=== PATIENT | male | born 1990 | race Caucasian/White ===

== ENCOUNTER 2024-02-27 16:21 | Inpatient (IN) | payer MEDICAID, OTHER, SELFPAY ==
[2024-02-27 16:34] VITALS: BP 150/100; BP 152/98; PULSE 102; PULSE 95; RESP 18; TEMP 36.7; O2SAT 100; BMI 27.3
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
[2024-02-27] MEDS: Gabapentin 300 MG CAPSULE PO (17:09)
[2024-02-27] MEDS: LORazepam 1 MG TABLET 2 MG PO ×2 (17:09→19:00)
[2024-02-27] MEDS: Ondansetron ODT 4 MG TAB.RAPDIS TRANSLINGU (17:09)
[2024-02-27 17:19] LABS: MANUAL DIFF FLAG NO
[2024-02-27 17:26] LABS: Basophils Percent Auto 0.3 % (0-2); Eosinophils Percent Auto 0.1 % (0-4); Hematocrit 38.9 % (42.0-52.0); Hemoglobin 13.4 g/dl (14.0-18.0); Imm Gran Abs Auto 0.09 X10*3/uL (0.00-0.03); Imm Gran Pct Auto 0.7 % (0.0-0.4); Lymphocytes Absolute Auto 2.2 X10*3/uL (1.2-4.9); Lymphocytes Percent Auto 17.7 % (20-40); Mean Corpuscular HGB Conc 34.4 g/dl (31.0-36.0); Mean Corpuscular Hemoglobin 28.6 pg (27.0-33.0); Mean Corpuscular Volume 82.9 fL (80.0-98.0); Mean Platelet Volume 9.9 fL (9.4-12.4); Monocytes Absolute Auto 1.2 X10*3/uL (0.1-1.2); Monocytes Percent Auto 9.9 % (2-11); Neutrophils Absolute Auto 8.6 x10*3/uL (2.0-8.3); Neutrophils Percent Auto 71.3 % (45-73); Platelet Count 494 X10*3/uL (160-400); Red Blood Count 4.69 X10*6/uL (4.60-5.80); Red Cell Distribution Width 13.9 % (11.0-16.0); White Blood Count 12.1 X10*3/uL (4.8-10.8)
[2024-02-27 17:27] LABS: Appearance Urine Clear; Color Urine Yellow; Glucose Urine UA Negative (Negative); Leukocyte Esterase Urine Negative (Negative); Nitrite Urine Negative (Negative); Specific Gravity - Urine >= 1.030 (1.005-1.025); Urine Blood Negative (Negative); Urine Ketones Negative (Negative); Urine Protein Trace mg/dL (Neg-Trace)
[2024-02-27 17:41] LABS: Amphetamine Screen Urine Not Detected (Not Detect); Barbiturates, Urine Not Detected (Not Detect); Benzodiazepines Screen Urine Not Detected (Not Detect); Buprenorphine Scr Not Detected (Not Detect); Cannabinoid Screen Urine Not Detected (Not Detect); Cocaine Screen Urine POSITIVE (Not Detect); Fentanyl, urine POSITIVE (Not Detect); Methadone Screen, Urine Positive (Not Detect); Opiate Screen Urine POSITIVE (Not Detect); Oxycodone Screen Urine Not Detected (Not Detect); Phencyclidine Screen Urine Not Detected (Not Detect)
[2024-02-27 18:13] LABS: Alanine Aminotransferase 47 U/L (0-40); Albumin Level 5.1 g/dL (3.5-5.0); Alkaline Phosphatase 91 U/L (39-117); Bilirubin Total 0.6 mg/dL (0.0-1.0); Blood Urea Nitrogen 30 mg/dL (9-16); Calcium 10.3 mg/dL (8.4-10.2); Carbon Dioxide 24 mmol/L (22-29); Chloride 96 mmol/L (96-108); Creatinine Clr Calc Pharmacy 95.9; Estimated Glomerular Filt Rate > 60; Ethanol < 10 mg/dL; Glucose Random 91 mg/dL (60-115); Sodium 136 mmol/L (135-145)
[2024-02-27 18:31] LABS: Anion Gap 20 (12-20); Aspartate Amino Transferase 47 U/L (5-37); Bilirubin Direct 0.1 mg/dL (0.0-0.5); Magnesium 2.7 mg/dL (1.6-2.6); Potassium 5.3 mmol/L (3.3-5.1); Total Protein 9.1 g/dL (6.5-8.0)
[2024-02-27 18:36] VITALS: BP 149/70; PULSE 100; RESP 16; O2SAT 98
--- NOTE | 2024-02-27 18:47 | PC.NURSE ---
Patient moved over to the pod from 6H, patient reporting increased withdrawal symptoms. CIWA 12. Patient endorses SI without plan
[2024-02-27 18:49] VITALS: BP 153/95; PULSE 105; RESP 16; TEMP 37.1; O2SAT 97
[2024-02-27 18:50] VITALS: PULSE 105
--- NOTE | 2024-02-27 19:02 | PC.NURSE ---
upon arrival to pod t/w encounters this client who seems to behaving some breakthough symptoms apparently possible etoh benzo wd. prior nurse had scored client on ciwa/cows scale and pursued medication for client for comfort. patient vs were mildly elevated, reported sweats and tremor. pupils 4mm~. t/w administered 2mg oral ativan, result pending.
--- NOTE | 2024-02-27 20:22 | ECG_ITS ---
Test Reason : QT INTERVAL Blood Pressure : / mmHG Vent. Rate : 088 BPM Atrial Rate : 088 BPM P-R Int : 186 ms QRS Dur : 096 ms QT Int : 464 ms P-R-T Axes : 034 060 047 degrees QTc Int : 561 ms Normal sinus rhythm Prolonged QT Abnormal ECG No previous ECGs available Referred By: Leonarda Carter Electronically Signed By:LIO VÁZQUEZ
[2024-02-27] MEDS: Sodium Zirconium Cyclosilicate 10 GM POWD.PACK PO (20:39)
--- NOTE | 2024-02-27 21:17 | PC.NURSE ---
client declined ekg presently, charge notified
--- NOTE | 2024-02-27 22:15 | MHC.EDTECH ---
pt continues to refuse EKG. rn aware.
--- NOTE | 2024-02-27 22:36 | MHC.CARE ---
RAD Team conducted a statewide dual dx bed search for this pt. Assessmnet was faxed to [facility]. No other beds available, bed search is exhausted for tonight.
--- NOTE | 2024-02-28 | ECG_ITS ---
Test Reason : CHECK QT Blood Pressure : / mmHG Vent. Rate : 074 BPM Atrial Rate : 074 BPM P-R Int : 188 ms QRS Dur : 096 ms QT Int : 378 ms P-R-T Axes : 035 067 048 degrees QTc Int : 419 ms Normal sinus rhythm Nonspecific T wave abnormality Abnormal ECG When compared with ECG of 28-FEB-2024 08:07, Non-specific change in ST segment in Anterior leads Nonspecific T wave abnormality no longer evident in Inferior leads QT has shortened Referred By: Jose Luis Cummings Electronically Signed By:LIO VÁZQUEZ
[2024-02-28] MEDS: Nicotine Polacrilex 2 MG GUM 4 MG BUCCAL ×3 (02:26→12:12)
[2024-02-28 02:32] VITALS: BP 165/84; PULSE 82; RESP 18; TEMP 37.1; O2SAT 98
--- NOTE | 2024-02-28 02:43 | PC.NURSE ---
d/t prolonged qt interval will relay to provider and nurse to follow to split or reduce dose, once verified.
[2024-02-28] MEDS: QUEtiapine Fumarate 100 MG TABLET PO (07:36)
[2024-02-28] MEDS: Gabapentin 600 MG TABLET PO ×3 (07:36→20:07)
--- NOTE | 2024-02-28 07:59 | ECG_ITS ---
Test Reason : PROLONGED QTC Blood Pressure : / mmHG Vent. Rate : 097 BPM Atrial Rate : 097 BPM P-R Int : 166 ms QRS Dur : 098 ms QT Int : 418 ms P-R-T Axes : 049 056 056 degrees QTc Int : 530 ms Normal sinus rhythm Possible Left atrial enlargement Minimal voltage criteria for LVH, may be normal variant ( Sokolow-Rubio ) Nonspecific T wave abnormality Prolonged QT Abnormal ECG When compared with ECG of 28-FEB-2024 02:23, No significant change was found Referred By: Soumya Rust Electronically Signed By:LIO VÁZQUEZ
--- NOTE | 2024-02-28 08:01 | HE.PHANOTE ---
Methadone Pt receives from [facility] [phone]. Pt last received 110 mg on 02/27/24 @ 0659 per CHILO Ham at facility.
[2024-02-28] MEDS: cloNIDine HCL 0.1 MG TABLET PO (08:02)
[2024-02-28 08:06] VITALS: BP 120/84; PULSE 98; RESP 20; TEMP 37.1; O2SAT 96
--- NOTE | 2024-02-28 08:16 | PC.NURSE ---
Assumed care of patient at 0645, patient reporting increased withdrawal symptoms and feeling crappy . CIWA score of 8 at this time. Patient requesting his methadone dose. methadone verified by this RN. Of note, patient's QTC is prolonged at this time so there is concern about the dosing of his methadone in conjunction with his other medications that may prolong his QTC. Patient did receive 0.1 Clonidine PRN for anxiety at this time. Second EKG was completed.
[2024-02-28] MEDS: methADONE HCl 20 MG/2 ML ORAL.CONC 60 MG PO (09:46)
[2024-02-28 15:23] VITALS: BP 118/78; PULSE 87; RESP 16; TEMP 36.9; O2SAT 97
[2024-02-28] MEDS: Nicotine Polacrilex Lozenge 4 MG LOZENGE BUCCAL ×2 (16:47→20:53)
--- NOTE | 2024-02-28 18:20 | PHA.MEDREC ---
Addendum entered by Liliana Frank RPh 02/28/24 18:27: Reviewed by [facility] Original Note: Pharmacy Consult ? Medication Reconciliation Pharmacy has completed the medication reconciliation. Patient confirmed clonidine and seroquel dosing.
--- NOTE | 2024-02-28 19:12 | PC.NURSE ---
patient appeared to remain at rest upon t/w's arrival to unit, had requested a lozenge soon after arrival and client had been given wrong information regarding availability. patient once educated returned to his room.
[2024-02-28] MEDS: Mirtazapine 15 MG TABLET 45 MG PO (20:07)
[2024-02-28] MEDS: QUEtiapine Fumarate 100 MG TABLET 200 MG PO (20:07)
[2024-02-28] MEDS: methADONE HCl 20 MG/2 ML ORAL.CONC 50 MG PO (20:11)
[2024-02-29] MEDS: Nicotine Polacrilex Lozenge 4 MG LOZENGE BUCCAL ×5 (00:39→19:48)
[2024-02-29 04:15] VITALS: PULSE 78
[2024-02-29] MEDS: Gabapentin 600 MG TABLET PO ×3 (08:09→19:46)
[2024-02-29] MEDS: methADONE HCl 20 MG/2 ML ORAL.CONC 60 MG PO (08:10)
[2024-02-29] MEDS: QUEtiapine Fumarate 100 MG TABLET PO (08:18)
[2024-02-29 08:19] VITALS: BP 152/91
[2024-02-29] MEDS: cloNIDine HCL 0.1 MG TABLET PO ×2 (08:19→19:49)
--- NOTE | 2024-02-29 08:29 | ECG_ITS ---
Test Reason : prolonged qtc Blood Pressure : / mmHG Vent. Rate : 088 BPM Atrial Rate : 088 BPM P-R Int : 168 ms QRS Dur : 082 ms QT Int : 364 ms P-R-T Axes : 036 058 023 degrees QTc Int : 440 ms Normal sinus rhythm Nonspecific T wave abnormality Abnormal ECG When compared with ECG of 28-FEB-2024 20:03, T wave inversion now evident in Inferior leads Referred By: Lety Saab Electronically Signed By:LIO VÁZQUEZ
--- NOTE | 2024-02-29 12:04 | MHC.CARE ---
statewide dual dx bed search for this pt was exhausted for today. Assessment was faxed to [facility] for possible admission tomorrow, 03/01
[2024-02-29 14:00] VITALS: BP 135/88; PULSE 100; TEMP 36.8; O2SAT 98
[2024-02-29] MEDS: methADONE HCl 20 MG/2 ML ORAL.CONC 50 MG PO (19:39)
[2024-02-29] MEDS: QUEtiapine Fumarate 100 MG TABLET 200 MG PO (19:46)
[2024-02-29] MEDS: Mirtazapine 15 MG TABLET 45 MG PO (19:47)
[2024-02-29 19:48] VITALS: BP 144/91; PULSE 100; RESP 16; TEMP 36.6; O2SAT 100
[2024-02-29] MEDS: traZODone HCL 100 MG TABLET PO (19:48)
[2024-02-29 19:49] VITALS: BP 144/91
[2024-03-01] MEDS: Nicotine Polacrilex Lozenge 4 MG LOZENGE BUCCAL ×5 (02:14→20:29)
--- NOTE | 2024-03-01 05:26 | PC.NURSE ---
Patient slept through the night, no distress observed/reported, med and meals compliant, disposition per care team is section 12 inpatient bed search however patient prefer dual diagnosis bed support, no behavior and safety issues, safety check maintained on 15 minutes, VSS, will continue to monitor
[2024-03-01 06:29] VITALS: BP 139/87; PULSE 84; TEMP 36.3; O2SAT 98
--- NOTE | 2024-03-01 07:06 | PC.NURSE ---
Assumed care of patient at 0645, patient appears to be in no apparent distress this am, currently sitting in bed watching TV. Patient reports being upset about not having an inpatient bed at this time. Patient relays to this RN that someone said he turned down a bed . Patient aware of continued plan to admit for dual dx
[2024-03-01] MEDS: methADONE HCl 20 MG/2 ML ORAL.CONC 60 MG PO (08:13)
[2024-03-01] MEDS: Gabapentin 600 MG TABLET PO ×3 (08:13→20:21)
[2024-03-01] MEDS: QUEtiapine Fumarate 100 MG TABLET PO (08:14)
--- NOTE | 2024-03-01 09:04 | MHC.CARE ---
Rad Team completed a dual bed search. [facility]/w [facility] and [facility]. These facilities are full for the day. [facility] has 1 female bed. . Bed search is exhausted. Care Team notified.
[2024-03-01 12:51] LABS: Anion Gap 14 (12-20); Blood Urea Nitrogen 19 mg/dL (9-16); Carbon Dioxide 28 mmol/L (22-29); Chloride 102 mmol/L (96-108); Estimated Glomerular Filt Rate > 60; Glucose Random 97 mg/dL (60-115); Potassium 3.8 mmol/L (3.3-5.1); Sodium 140 mmol/L (135-145)
[2024-03-01 14:21] VITALS: RESP 16
[2024-03-01 15:58] VITALS: BP 139/91; PULSE 93; RESP 16; TEMP 36.7; O2SAT 99
[2024-03-01 15:59] VITALS: BMI 29.1
[2024-03-01 16:00] VITALS: PULSE 93
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
[2024-03-01 20:00] VITALS: BP 157/79; PULSE 95; RESP 18; TEMP 37.2; O2SAT 99
[2024-03-01] MEDS: methADONE HCl 20 MG/2 ML ORAL.CONC 50 MG PO (20:09)
[2024-03-01] MEDS: QUEtiapine Fumarate 100 MG TABLET 200 MG PO (20:19)
[2024-03-01] MEDS: hydrOXYzine HCL 25 MG TABLET PO (20:19)
[2024-03-01] MEDS: traZODone HCL 100 MG TABLET PO (20:20)
[2024-03-01] MEDS: Mirtazapine 15 MG TABLET 45 MG PO (20:20)
[2024-03-01] MEDS: cloNIDine HCL 0.1 MG TABLET PO (20:21)
[2024-03-02] VITALS: PULSE 95
--- NOTE | 2024-03-02 | ECG_ITS ---
Test Reason : PROLONGED QTC Blood Pressure : / mmHG Vent. Rate : 072 BPM Atrial Rate : 072 BPM P-R Int : 204 ms QRS Dur : 096 ms QT Int : 372 ms P-R-T Axes : 059 071 046 degrees QTc Int : 407 ms Normal sinus rhythm Normal ECG When compared with ECG of 29-FEB-2024 08:49, Nonspecific T wave abnormality no longer evident in Anterolateral leads Referred By: Lyle Vu Electronically Signed By:LIO VÁZQUEZ
[2024-03-02] MEDS: Nicotine Polacrilex Lozenge 4 MG LOZENGE BUCCAL ×6 (05:46→20:57)
[2024-03-02 07:53] VITALS: BP 143/70; PULSE 78; RESP 18; TEMP 36.4; O2SAT 98
[2024-03-02 08:00] VITALS: PULSE 78
[2024-03-02] MEDS: methADONE HCl 20 MG/2 ML ORAL.CONC 60 MG PO (08:04)
[2024-03-02] MEDS: cloNIDine HCL 0.1 MG TABLET PO (08:38)
[2024-03-02] MEDS: QUEtiapine Fumarate 100 MG TABLET PO (08:39)
[2024-03-02] MEDS: Gabapentin 600 MG TABLET PO ×3 (08:39→20:57)
--- NOTE | 2024-03-02 12:28 | PM.EVENT ---
Event Note Date of Service: 03/02/24 Event Note: Addiction note Addiction consult placed for patient with OUD and AUD While in ED, EKG showed prolonged QT-so provider spilt full dose to BID dose Since then QT has shortened and per business objects consultant, patient reports he is not feeling well Recommendations: -resume once daily dosing (110mg) -d/c split dosing -recheck EKG Time Spent With Patient Time: Total time managing care of this patient today ____ minutes.
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
[2024-03-02] MEDS: methADONE HCl 20 MG/2 ML ORAL.CONC 50 MG PO (14:52)
[2024-03-02 16:00] VITALS: PULSE 88
[2024-03-02 20:15] VITALS: BP 120/74; PULSE 71; RESP 16; TEMP 36.5; O2SAT 95
[2024-03-02] MEDS: Mirtazapine 15 MG TABLET 45 MG PO (20:56)
[2024-03-02] MEDS: cloNIDine HCL 0.2 MG TABLET PO (20:56)
[2024-03-02] MEDS: traZODone HCL 100 MG TABLET PO (20:56)
[2024-03-02] MEDS: QUEtiapine Fumarate 100 MG TABLET 200 MG PO (20:57)
[2024-03-03] MEDS: Nicotine Polacrilex Lozenge 4 MG LOZENGE BUCCAL ×9 (01:03→20:24)
[2024-03-03 07:42] VITALS: BP 142/75; PULSE 84; RESP 16; TEMP 36.3; O2SAT 100
[2024-03-03 08:00] VITALS: PULSE 84
[2024-03-03] MEDS: methADONE HCl 20 MG/2 ML ORAL.CONC 110 MG PO (08:05)
[2024-03-03] MEDS: Gabapentin 600 MG TABLET PO ×3 (08:52→20:20)
[2024-03-03] MEDS: QUEtiapine Fumarate 100 MG TABLET PO (08:53)
[2024-03-03] MEDS: methADONE HCl 20 MG/2 ML ORAL.CONC 5 MG PO (11:29)
[2024-03-03] MEDS: Lidocaine 4 % Patch ADH..PATCH 1 PATCH TRANSDERMA (11:30)
[2024-03-03] MEDS: QUEtiapine Fumarate 50 MG TABLET PO (12:24)
--- NOTE | 2024-03-03 12:46 | HO.PSYCHPN ---
Subjective Subjective Date of Service: 03/03/24 Reason For Visit: SI Interim History: calm, cooperative. c/o anxiety, agreed to seroquel PRNs. reports slept well but still with evidence of disturbed sleep. agrees to increase HS clonidine to 0.3 mg. per staff, napping. high anxiety. c/o pain. CIWA 4, 1, 5. COWS 2, 3. taking meds, attending groups. slept 8 hours. Mental Status Exam Mental Status Exam Narrative: adequately dressed and groomed. cooperative. no PMA/PMR. speech nml rate, amount, loudness, tone, latency. thoughts linear and logical. affect constricted, normo-intense, non-labile. mood anxious no SI/HI/AVH expressed. Diagnostics Vital Signs (24Hr): Vital Signs - 24 hr 03/02/24 20:15 03/03/24 07:42 Temperature 97.7 F 97.4 F Pulse Rate 71 84 Respiratory Rate 16 16 Blood Pressure 120/74 142/75 H Pulse Oximetry 95 100 Oxygen Delivery Method Room Air Room Air BMI result Body Mass Index 29.1 Labs 02/27/24 17:11 03/01/24 12:31 Labs: Laboratory Results - last 48 hr 03/01/24 12:31 Sodium 140 Potassium 3.8 D Chloride 102 Carbon Dioxide 28 Anion Gap 14 BUN 19 H Creatinine 0.78 Estim Creat Clear Calc 145.0 Estimated GFR > 60 Random Glucose 97 Calcium 10.0 Medications Medications Current Medications Acetaminophen (Acetaminophen 325 Mg Tablet) 650 mg PO Q6H PRN PRN Reason: Headache/Pain Mild Scale (1-3) Al Hydroxide/Mg Hydroxide (Magnesium Hydrox/Alum Hydrox 30 Ml Oral.Susp) 30 ml PO Q6H PRN PRN Reason: Heartburn/Nausea Clonidine HCl (Clonidine Hcl 0.1 Mg Tablet) 0.1 mg PO TID PRN; Protocol PRN Reason: Anxiety Last Admin: 03/02/24 08:38 Dose: 0.1 mg Clonidine HCl (Clonidine Hcl 0.1 Mg Tablet) 0.3 mg PO BEDTIME NEDA; Protocol Gabapentin (Gabapentin 600 Mg Tablet) 600 mg PO TID NEDA Last Admin: 03/03/24 08:52 Dose: 600 mg Hydroxyzine HCl (Hydroxyzine Hcl 25 Mg Tablet) 25 mg PO Q6H PRN PRN Reason: Anxiety Last Admin: 03/01/24 20:19 Dose: 25 mg Lidocaine (Lidocaine 4 % Patch Adh..Patch) 1 patch TRANSDERMA DAILY PRN; Protocol PRN Reason: pain (pain scale 1-10) Last Admin: 03/03/24 11:30 Dose: 1 patch Magnesium Hydroxide (Milk Of Magnesia 30 Ml Oral.Susp) 30 ml PO DAILY PRN PRN Reason: Constipation Methadone HCl (Methadone Hcl 20 Mg/2 Ml Oral.Conc) 115 mg PO DAILY NEDA Mirtazapine (Mirtazapine 15 Mg Tablet) 45 mg PO BEDTIME NEDA Last Admin: 03/02/24 20:56 Dose: 45 mg Nicotine Polacrilex (Nicotine Polacrilex Lozenge 4 Mg Lozenge) 4 mg BUCCAL Q1H PRN PRN Reason: Nicotine Cravings Last Admin: 03/03/24 12:41 Dose: 4 mg Quetiapine Fumarate (Quetiapine Fumarate 100 Mg Tablet) 200 mg PO BEDTIME NEDA Last Admin: 03/02/24 20:57 Dose: 200 mg Quetiapine Fumarate (Quetiapine Fumarate 100 Mg Tablet) 100 mg PO DAILY NEDA Last Admin: 03/03/24 08:53 Dose: 100 mg Quetiapine Fumarate (Quetiapine Fumarate 50 Mg Tablet) 50 mg PO Q6H PRN PRN Reason: severe anxiety Last Admin: 03/03/24 12:24 Dose: 50 mg Trazodone HCl (Trazodone Hcl 100 Mg Tablet) 100 mg PO BEDTIME PRN PRN Reason: Insomnia Last Admin: 03/02/24 20:56 Dose: 100 mg Allergies Allergies Allergy/AdvReac Type Severity Reaction Status Date / Time No Known Allergies Allergy Unverified 02/27/24 16:48 [No Known Allergies*] Morphine Sulfate Allergy Unknown (IV only) Uncoded 02/27/24 16:48 seizures Assessment & Plan Assessment & Plan (1) Polysubstance use disorder: Status: Acute Code(s): F19.90 - Other psychoactive substance use, unspecified, uncomplicated (2) PTSD (post-traumatic stress disorder): Status: Acute Code(s): F43.10 - Post-traumatic stress disorder, unspecified Plan 03/02: continue home meds. add clonidine 0.2 mg QHS for insomnia/nightmares in PTSD. refer to rehab. 03/03: increase HS clonidine to 0.3 mg. rehab referral. DC COWS. Reason for continued inpatient stay Substantial Risk for: inability to function and rapid decompensation Time Spent With Patient Time: Total time managing care of this patient today __25__ minutes.
[2024-03-03 19:47] VITALS: BP 136/75; PULSE 91; RESP 16; TEMP 37.1; O2SAT 100
[2024-03-03] MEDS: QUEtiapine Fumarate 100 MG TABLET 200 MG PO (20:20)
[2024-03-03] MEDS: cloNIDine HCL 0.1 MG TABLET 0.3 MG PO (20:20)
[2024-03-03] MEDS: Mirtazapine 15 MG TABLET 45 MG PO (20:20)
[2024-03-03] MEDS: traZODone HCL 100 MG TABLET PO (20:21)
[2024-03-04] MEDS: QUEtiapine Fumarate 50 MG TABLET PO ×3 (02:48→20:07)
[2024-03-04] MEDS: Nicotine Polacrilex Lozenge 4 MG LOZENGE BUCCAL ×8 (02:48→20:22)
[2024-03-04 07:00] VITALS: BMI 29.4
[2024-03-04] MEDS: methADONE HCl 20 MG/2 ML ORAL.CONC 115 MG PO (07:50)
[2024-03-04] MEDS: QUEtiapine Fumarate 100 MG TABLET PO (08:38)
[2024-03-04] MEDS: Gabapentin 600 MG TABLET PO ×3 (08:38→20:05)
[2024-03-04 08:41] VITALS: BP 114/61; PULSE 70; RESP 16; TEMP 37; O2SAT 96
[2024-03-04] MEDS: Lidocaine 4 % Patch ADH..PATCH 1 PATCH TRANSDERMA (10:32)
--- NOTE | 2024-03-04 10:32 | MHC.RECOVRN ---
AUDIT-C Brief Intervention Pt had positive screen for unhealthy alcohol use on admission, subsequently met with t/w to discuss alcohol use and recovery supports/options. Pt voices concern regarding alcohol use and is aware that drinking at unhealthy levels is known to increase risk of alcohol related health problems. Pt reports one sleeve of fireball a day. Pt denies alcohol use negatively impacting his life.. Discussed risk reduction strategies including drinking below the recommended limit, patient states Its not that bad . Provided pt with written resources including information on inpatient and outpatient treatment, [facility], harm reduction, and recovery coaching. Pt plans to look for a half way house upon discharge, and continue methadone for RADHA. Pt provided with t/w contact information if questions or concerns arise. Denies other questions or concerns at this time.?
--- NOTE | 2024-03-04 14:24 | P.PNPSI_ITS ---
Subjective Subjective Date of Service: 03/04/24 Reason For Visit: SI Interim History: looking well. sattes anxiety was helped by lb SAMANON yesterday. asks for methadone dosing to be increased tro 120 mg, which will be done as of tomorrow. still nightmares, agrees to have clonidine at HS increased to 0.4 mg. per staff, dep/anx. feeling improved from admission, however. still had nightmares last night, slept about 9 hours Mental Status Exam Mental Status Exam Narrative: adequately dressed and groomed. cooperative. no PMA/PMR. speech nml rate, amount, loudness, tone, latency. thoughts linear and logical. affect constricted, normo-intense, non-labile. mood anxious no SI/HI/AVH expressed. Diagnostics Vital Signs (24Hr): Vital Signs - 24 hr 03/03/24 19:47 03/04/24 08:41 Temperature 98.7 F 98.6 F Pulse Rate 91 70 Respiratory Rate 16 16 Blood Pressure 136/75 114/61 Pulse Oximetry 100 96 Oxygen Delivery Method Room Air Room Air BMI result Body Mass Index 29.4 Labs 02/27/24 17:11 03/01/24 12:31 Medications Medications Current Medications Acetaminophen (Acetaminophen 325 Mg Tablet) 650 mg PO Q6H PRN PRN Reason: Headache/Pain Mild Scale (1-3) Al Hydroxide/Mg Hydroxide (Magnesium Hydrox/Alum Hydrox 30 Ml Oral.Susp) 30 ml PO Q6H PRN PRN Reason: Heartburn/Nausea Clonidine HCl (Clonidine Hcl 0.1 Mg Tablet) 0.1 mg PO TID PRN; Protocol PRN Reason: Anxiety Last Admin: 03/02/24 08:38 Dose: 0.1 mg Clonidine HCl (Clonidine Hcl 0.2 Mg Tablet) 0.4 mg PO BEDTIME NEDA; Protocol Gabapentin (Gabapentin 600 Mg Tablet) 600 mg PO TID NEDA Last Admin: 03/04/24 08:38 Dose: 600 mg Hydroxyzine HCl (Hydroxyzine Hcl 25 Mg Tablet) 25 mg PO Q6H PRN PRN Reason: Anxiety Last Admin: 03/01/24 20:19 Dose: 25 mg Lidocaine (Lidocaine 4 % Patch Adh..Patch) 1 patch TRANSDERMA DAILY PRN; Protocol PRN Reason: pain (pain scale 1-10) Last Admin: 03/04/24 10:32 Dose: 1 patch Magnesium Hydroxide (Milk Of Magnesia 30 Ml Oral.Susp) 30 ml PO DAILY PRN PRN Reason: Constipation Methadone HCl (Methadone Hcl 20 Mg/2 Ml Oral.Conc) 120 mg PO DAILY NEDA Mirtazapine (Mirtazapine 15 Mg Tablet) 45 mg PO BEDTIME NEDA Last Admin: 03/03/24 20:20 Dose: 45 mg Nicotine Polacrilex (Nicotine Polacrilex Lozenge 4 Mg Lozenge) 4 mg BUCCAL Q1H PRN PRN Reason: Nicotine Cravings Last Admin: 03/04/24 13:05 Dose: 4 mg Quetiapine Fumarate (Quetiapine Fumarate 100 Mg Tablet) 200 mg PO BEDTIME NEDA Last Admin: 03/03/24 20:20 Dose: 200 mg Quetiapine Fumarate (Quetiapine Fumarate 100 Mg Tablet) 100 mg PO DAILY [facility] Last Admin: 03/04/24 08:38 Dose: 100 mg Quetiapine Fumarate (Quetiapine Fumarate 50 Mg Tablet) 50 mg PO Q6H PRN PRN Reason: severe anxiety Last Admin: 03/04/24 13:04 Dose: 50 mg Trazodone HCl (Trazodone Hcl 100 Mg Tablet) 100 mg PO BEDTIME PRN PRN Reason: Insomnia Last Admin: 03/03/24 20:21 Dose: 100 mg Allergies Allergies Allergy/AdvReac Type Severity Reaction Status Date / Time No Known Allergies Allergy Unverified 02/27/24 16:48 [No Known Allergies*] Morphine Sulfate Allergy Unknown (IV only) Uncoded 02/27/24 16:48 seizures Assessment & Plan Assessment & Plan (1) Polysubstance use disorder: Status: Acute Code(s): F19.90 - Other psychoactive substance use, unspecified, uncomplicated (2) PTSD (post-traumatic stress disorder): Status: Acute Code(s): F43.10 - Post-traumatic stress disorder, unspecified Plan 03/02: continue home meds. add clonidine 0.2 mg QHS for insomnia/nightmares in PTSD. refer to rehab. 03/03: increase HS clonidine to 0.3 mg. rehab referral. DC COWS. methadone increased to 115 mg daily. 03/04: increase HS clonidine to 0.4 mg for nightmares. increase methadone to 120 mg starting tomorrow morning. rehab referral. Reason for continued inpatient stay Substantial Risk for: inability to function and rapid decompensation Time Spent With Patient Time: Total time managing care of this patient today __25__ minutes.
[2024-03-04 20:00] VITALS: BP 129/79; PULSE 92; RESP 16; TEMP 37; O2SAT 99
[2024-03-04] MEDS: Mirtazapine 15 MG TABLET 45 MG PO (20:05)
[2024-03-04] MEDS: cloNIDine HCL 0.2 MG TABLET 0.4 MG PO (20:05)
[2024-03-04] MEDS: QUEtiapine Fumarate 100 MG TABLET 200 MG PO (20:06)
[2024-03-04] MEDS: cloNIDine HCL 0.1 MG TABLET PO (20:06)
[2024-03-04] MEDS: hydrOXYzine HCL 25 MG TABLET PO (20:06)
[2024-03-04] MEDS: traZODone HCL 100 MG TABLET PO (20:07)
--- NOTE | 2024-03-05 00:23 | PC.NURSE ---
Addendum entered by Erica Bradford RN 03/05/24 06:16: Pt again sleeping through 0400 CIWA. Resting comfortably. Allowed to sleep. Original Note: Pt appears to be sleeping soundly, breathing easy and unlabored at this time. Therefore pt was not woken for CIWA scale. Will continue to monitor pt.
[2024-03-05] MEDS: Nicotine Polacrilex Lozenge 4 MG LOZENGE BUCCAL ×4 (01:28→10:45)
[2024-03-05 07:20] VITALS: BP 106/55; PULSE 97; RESP 14; TEMP 36.8; O2SAT 98
[2024-03-05] MEDS: methADONE HCl 20 MG/2 ML ORAL.CONC 120 MG PO (07:58)
[2024-03-05] MEDS: Gabapentin 600 MG TABLET PO (08:39)
[2024-03-05] MEDS: QUEtiapine Fumarate 100 MG TABLET PO (08:39)
[2024-03-05] MEDS: Lidocaine 4 % Patch ADH..PATCH 1 PATCH TRANSDERMA (09:39)
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
== END 2024-03-05 11:12 | DRG 755 ==
LOC: HO.ED 03-01 09:29 → HO.PADLT16 03-01 13:18
PROVIDERS: Emergency Medicine; Physician Assistant; Admitting Provider Psychiatry & Neurology Psychiatry; Emergency Provider Emergency Medicine; Visit Provider Psychiatry & Neurology Psychiatry
DX: F43.12 Post-traumatic stress disorder, chronic (principal); R45.851 Suicidal ideations; F11.20 Opioid dependence, uncomplicated; F19.90 Other psychoactive substance use, unspecified, uncomplicated; F17.290 Nicotine dependence, other tobacco product, uncomplicated; R94.31 Abnormal electrocardiogram [ECG] [EKG]; Z59.02 Unsheltered homelessness; Z71.6 Tobacco abuse counseling; Z79.899 Other long term (current) drug therapy
CPT/HCPCS: 36415; 80048; 80076; 80307; 81003; 83735; 85025; 93005; 99285; S9485

== ENCOUNTER → 2024-03-01 13:14 | Outpatient (BNV) | payer OTHER, SELFPAY | PROVIDERS: Admitting Provider Psychiatry & Neurology Psychiatry; Emergency Provider Emergency Medicine; Visit Provider Psychiatry & Neurology Psychiatry | DX: F19.90 Other psychoactive substance use, unspecified, uncomplicated (principal); F43.11 Post-traumatic stress disorder, acute | CPT/HCPCS: 99232; 99233 ==

== ENCOUNTER 2025-03-31 20:56 | Emergency (ER) | payer OTHER, SELFPAY ==
[2025-03-31 21:38] VITALS: BP 157/98; PULSE 100; RESP 18; TEMP 37.1; O2SAT 98; BMI 3897.7
--- NOTE | 2025-03-31 22:14 | ED.GENADULT ---
HPI - General Adult General Chief complaint: General Medical Stated complaint: fever,not feeling good Time Seen by Provider: 03/31/25 22:17 Source: patient Mode of arrival: ambulatory Limitations: no limitations History of Present Illness ED Provider: Kala Menjivar APRN HPI narrative: 34 yo male with PMH of polysubstance use, PTSD here with complaints of fatigue, cold sweats for several days. Had URI symptoms 2 weeks ago all now resolved. Filled his clonidine 30 day supply on 03/16 but has been taking extra tablets daily and ran out 3 days ago. Doesnt want to call his prescriber for a refill as he feels she will be upset with him. He denies any SOB, chest pain, vomiting, diarrhea, headache, fevers, skin rash, neck pain or stiffness. Denies current substance use and has been sober for 1 year. Related Data Previous Rx's ?Medication ?Instructions ?Recorded clonidine HCl 0.1 mg tablet 0.1 mg PO BID PRN Anxiety 30 days 03/05/24 #60 tabs clonidine HCl 0.2 mg tablet 0.4 mg PO BEDTIME 30 days #60 tabs 03/05/24 gabapentin 600 mg tablet 600 mg PO TID 30 days #90 tabs 03/05/24 hydroxyzine HCl 25 mg tablet 25 mg PO TID PRN Anxiety 30 days 03/05/24 #90 tabs lidocaine 5 % topical ointment 1 appl topical TID PRN pain 30 03/05/24 days #50 grams methadone 10 mg/mL oral 120 mg (12 mL) PO DAILY #0 mL 03/05/24 concentrate (Methadose) mirtazapine 45 mg tablet 45 mg PO BEDTIME 30 days #30 tabs 03/05/24 naloxone 4 mg/actuation nasal 4 mg intranasal Q2M PRN opioid 03/05/24 spray (Narcan) overdose 1 day #2 ea nicotine (polacrilex) 4 mg buccal 4 mg buccal Q1H PRN Nicotine 03/05/24 lozenge Cravings 30 days #108 ea quetiapine 100 mg tablet (Seroquel) 100 mg PO DAILY 30 days #30 tabs 03/05/24 quetiapine 100 mg tablet (Seroquel) 200 mg (2 x 100 mg) PO BEDTIME 30 03/05/24 days #60 tabs quetiapine 50 mg tablet 50 mg PO TID PRN severe anxiety 30 03/05/24 days #90 tabs trazodone 100 mg tablet 100 mg PO BEDTIME PRN Insomnia 30 03/05/24 days #30 tabs Allergies Allergy/AdvReac Type Severity Reaction Status Date / Time No Known Allergies (No Known Allergy Verified 03/31/25 21:41 Allergies*) Morphine Sulfate Allergy Unknown (IV only) Uncoded 03/31/25 21:41 seizures Review of Systems Review of Systems: Yes all other systems are reviewed and are negative Constitutional: Constitutional: Reports no additional constitutional complaints, Denies body ache(s), Reports chills, Reports fatigue, Denies fever(s), Denies headache(s) and Denies weakness Eyes: Eyes: Reports no additional eye complaints and Denies change in vision ENT: Reports system reviewed and no additional complaints, except as documented, Denies dizziness, Denies headache(s), Denies nasal congestion, Denies nasal discharge and Denies neck pain Cardiovascular: Cardiovascular: Reports no additional cardiovascular complaints, Denies chest pain, Denies leg edema and Denies dyspnea Respiratory: Respiratory: Reports no additional respiratory complaints, Denies cough and Denies dyspnea Gastrointestinal: Gastrointestinal: Reports no additional gastrointestinal complaints, Denies abdominal pain, Denies diarrhea, Denies nausea and Denies vomiting Genitourinary: Genitourinary: Denies urinary incontinence Musculoskeletal: Musculoskeletal: Reports no additional musculoskeletal complaints, Denies back pain, Denies arthralgias, Denies joint swelling, Denies neck pain, Denies numbness and Denies tingling Integumentary/Breasts: Skin/Breast: Reports system reviewed and no additional complaints, except as docu and Denies rash Neurologic: Reports system reviewed and no additional complaints, except as documented, Denies Abnormal speech present, Denies dizziness, Denies headache(s), Denies numbness, Denies tingling and Denies weakness Endocrine: Endocrine: Reports fatigue PMFSH Past Medical History Attestation statement: The following information was validated with the patient. Source: old records reviewed and nursing notes reviewed Social History Social History Household Members: None Housing: Homeless Do you presently have visiting nurse or other home services: No Patient Tobacco Use Status: Current everyday Tobacco user Tobacco use type: Smokeless Tobacco Years Smoked: 20 e-Cigarette/Vaping Use: Currently Using Second Hand Smoke Exposure: Yes Substance Use Type: Crack/Cocaine and Opiates Advance Directives: No Advance Directives Information Provided: No service: No Sexual orientation: Straight/Heterosexual Physical Exam ED Vital Signs: Vital Signs - 24 hr 03/31/25 21:38 Temperature 98.8 F Pulse Rate 100 Respiratory Rate 18 Blood Pressure 157/98 H Pulse Oximetry 98 Oxygen Delivery Method Room Air BMI result Body Mass Index 3897.7 Const General: cooperative, healthy appearing, comfortable and no acute distress Orientation/consciousness: patient oriented x3 Limitations: no limitations HENMT Head: Yes normal to inspection Ears: hearing grossly normal bilaterally and TM's normal bilaterally General nose exam: Normal external nose present Face and sinus: Yes normal facial exam Mouth: Normal oral and palatal mucosa present Throat: Yes posterior oropharynx normal, Yes tonsils normal and Yes uvula midline Eyes General: appearance normal, both eyes and all related structures Pupils: Equal, round and reactive pupils present Neck Neck: Yes normal visual inspection, Yes full ROM, Yes no lymphadenopathy and Yes no meningeal signs Chest Chest palpation & inspection: normal inspection of the chest Resp Effort & Inspection: normal respiratory effort Auscultation: clear to auscultation bilaterally Cardio Rate: regular rate Rhythm: regular rhythm Peripheral pulses: Peripheral pulses 2+ throughout GI Inspection: Yes normal to inspection Palpation (GI): Soft to palpation and nontender Auscultation: normal bowel sounds Back/Spine/Pelvis Thoracic/Lumbar Spine: thoracic and lumbar spine normal to inspection Skin General skin exam: no rashes or lesions noted Neuro General: patient oriented x3, moves all extremities, no meningeal signs, no focal motor deficits and normal sensation to monofilament Cranial nerves: Yes CN's II-XII intact bilaterally, Yes Equal, round and reactive pupils present, Yes Bilaterally intact EOM present, Yes Nystagmus not present and Yes Normal facial strength present Cognition (Neuro): normal cognition Speech: No Abnormal speech present Gait exam (Neuro): Normal gait present Motor exam (neuro): 5/5 motor strength present throughout Sensory Exam: Normal double simultaneous stimulation for sensation Extrem General: Yes normal to inspection, Yes no calf tenderness and Yes normal gait Course Course Course Narrative: 03/31 2214 Kala Menjivar APRN This is a rapid medical exam. Deferred additional HPI, ROS, PE to primary provider. 34-year-old male with a history of polysubstance abuse presents the ER with complaints of general malaise and night sweats with recent med changes. Labs, viral testing ordered. VSS Reevaluation(s) Reevaluation #1: Viral testing is negative. Labs are unremarkable. Likely related to his medication changes. Recommend patient follow up outpatient with his prescriber. Reviewed worrisome signs and symptoms of when to return to the emergency room. Comfortable plan for discharge home. Medical Decision Making Medical Decision Making [facility] Narrative: 34 yo male with PMH of polysubstance use, PTSD here with complaints of fatigue, cold sweats for several days. Had URI symptoms 2 weeks ago all now resolved. Filled his clonidine 30 day supply on 03/16 but has been taking extra tablets daily and ran out 3 days ago. Doesnt want to call his prescriber for a refill as he feels she will be upset with him. He denies any SOB, chest pain, vomiting, diarrhea, headache, fevers, skin rash, neck pain or stiffness. Denies current substance use and has been sober for 1 year. Exam is benign. VSS Will obtain labs, viral testing. ?med related Differential Diagnosis Differential Diagnoses: The differential diagnosis associated with the presentation includes polypharmacy, viral syndrome Admission/Observation Consideration of admission/observation: Escalation of care including admission/observation considered Lab Data [facility] Lab Attestation statement: I reviewed the patient's lab results. 03/31/25 22:44 03/31/25 22:44 Labs: Lab Results 03/31/25 03/31/25 Range/Units 22:27 22:44 WBC 9.6 (4.8-10.8) X10*3/uL RBC 4.99 (4.60-5.80) X10*6/uL Hgb 14.5 (14.0-18.0) g/dl Hct 41.7 L (42.0-52.0) % MCV 83.6 (80.0-98.0) fL MCH 29.1 (27.0-33.0) pg MCHC 34.8 (31.0-36.0) g/dl RDW 14.8 (11.0-16.0) % Plt Count 307 D (160-400) X10*3/uL MPV 9.7 (9.4-12.4) fL Immature Gran % (Auto) 0.2 (0.0-0.4) % Neut % (Auto) 69.2 (45-73) % Lymph % (Auto) 23.0 (20-40) % [place] % (Auto) 6.0 (2-11) % Eos % (Auto) 1.1 (0-4) % Baso % (Auto) 0.5 (0-2) % Lymph # (Auto) 2.2 (1.2-4.9) X10*3/uL [place] # (Auto) 0.6 (0.1-1.2) X10*3/uL Eos # (Auto) 0.1 (0.0-0.4) X10*3/uL Baso # (Auto) 0.1 (0.0-0.2) X10*3/uL Abs Immat Gran (auto) 0.02 (0.00-0.03) X10*3/uL Absolute Neuts (auto) 6.7 (2.0-8.3) x10*3/uL Absolute Nucleated RBC 0.000 (0.0-0.012) X10*3/uL Nucleated RBC % (auto) 0.0 (0.0-0.2) /100WBC Sodium 139 (135-145) mmol/L Potassium 3.9 (3.3-5.1) mmol/L Chloride 105 (96-108) mmol/L Carbon Dioxide 25 (22-29) mmol/L Anion Gap 13 (12-20) BUN 11 (9-16) mg/dL Creatinine 0.78 (0.5-1.4) mg/dL Estim Creat Clear Calc -15.3 Estimated GFR > 60 Random Glucose 88 (60-115) mg/dL Calcium 9.7 (8.4-10.2) mg/dL Total Bilirubin 0.5 (0.0-1.0) mg/dL AST 27 (5-37) U/L ALT 17 (0-40) U/L Alkaline Phosphatase 101 (39-117) U/L Total Protein 7.6 (6.5-8.0) g/dL Albumin 5.0 (3.5-5.0) g/dL COVID-19 (ROSSI) Negative (Negative) COVID-19 Clin Com See Note Influenza Type A (LUCHO) Negative (Negative) Influenza Type B (LUCHO) Negative (Negative) Influenza A & B Note See Note Discharge Plan Discharge Clinical Impression: Fatigue Patient Disposition: Home, Self-Care Instructions: Fatigue (ED) Additional Instructions: your COVID and flu testing are negative Your blood work is normal Your symptoms may be related to not having your clonidine for several days. I would recommend that you call your prescriber tomorrow and make them aware of this. Prescriptions: No Action nicotine (polacrilex) 4 mg Lozenge 4 mg buccal Q1H PRN (Reason: Nicotine Cravings) 30 Days Qty: 108 0RF clonidine HCl 0.1 mg Tablet 0.1 mg PO BID PRN (Reason: Anxiety) 30 Days Qty: 60 0RF Protocol: Hold for SBP< HOLD for SBP < : 90 clonidine HCl 0.2 mg Tablet 0.4 mg PO BEDTIME 30 Days Qty: 60 0RF Protocol: Hold for SBP< HOLD for SBP < : 90 hydroxyzine HCl 25 mg Tablet 25 mg PO TID PRN (Reason: Anxiety) 30 Days Qty: 90 0RF trazodone 100 mg Tablet 100 mg PO BEDTIME PRN (Reason: Insomnia) 30 Days Qty: 30 0RF methadone [Methadose] 10 mg/mL Concentrate 120 mg PO DAILY Qty: 0 0RF Rx Instructions: Partial Fill upon patient request. quetiapine 50 mg Tablet 50 mg PO TID PRN (Reason: severe anxiety) 30 Days Qty: 90 0RF gabapentin 600 mg tablet 600 mg PO TID 30 Days Qty: 90 0RF quetiapine [Seroquel] 100 mg tablet 200 mg PO BEDTIME 30 Days Qty: 60 0RF quetiapine [Seroquel] 100 mg tablet 100 mg PO DAILY 30 Days Qty: 30 0RF mirtazapine 45 mg tablet 45 mg PO BEDTIME 30 Days Qty: 30 0RF naloxone [Narcan] 4 mg/actuation spray,non-aerosol 4 mg intranasal Q2M PRN (Reason: opioid overdose) 1 Days Qty: 2 0RF Rx Instructions: spray 1 dose into ONE nostril; alternate nostrils w each dose until help arrives lidocaine 5 % ointment 1 appl topical TID PRN (Reason: pain) 30 Days Qty: 50 0RF Rx Instructions: apply to affected areas up to thrice daily as needed for pain Referrals: Physician,None [Primary Care Provider, Medical] Stand Alone Forms: Work/School Release Print Language: Congolese
[2025-03-31 22:49] LABS: MANUAL DIFF FLAG NO
[2025-03-31 22:51] LABS: COVID-19 Test Negative (Negative); IDNOW Serial# 152EDE1D; IDNOW Serial# 16C4AD1C
[2025-03-31 22:51] LABS: Hematocrit 41.7 % (42.0-52.0); Hemoglobin 14.5 g/dl (14.0-18.0); Imm Gran Abs Auto 0.02 X10*3/uL (0.00-0.03); Imm Gran Pct Auto 0.2 % (0.0-0.4); Lymphocytes Absolute Auto 2.2 X10*3/uL (1.2-4.9); Mean Corpuscular HGB Conc 34.8 g/dl (31.0-36.0); Mean Corpuscular Hemoglobin 29.1 pg (27.0-33.0); Mean Corpuscular Volume 83.6 fL (80.0-98.0); NRBC Abs Auto 0.000 X10*3/uL (0.0-0.012); NRBC Pct Auto 0.0 /100WBC (0.0-0.2); Platelet Count 307 X10*3/uL (160-400); Red Blood Count 4.99 X10*6/uL (4.60-5.80); White Blood Count 9.6 X10*3/uL (4.8-10.8)
[2025-03-31 22:52] LABS: Influenza B2 Negative (Negative)
[2025-03-31 23:05] LABS: Alanine Aminotransferase 17 U/L (0-40); Albumin Level 5.0 g/dL (3.5-5.0); Alkaline Phosphatase 101 U/L (39-117); Anion Gap 13 (12-20); Aspartate Amino Transferase 27 U/L (5-37); Blood Urea Nitrogen 11 mg/dL (9-16); Calcium 9.7 mg/dL (8.4-10.2); Carbon Dioxide 25 mmol/L (22-29); Chloride 105 mmol/L (96-108); Creatinine Clr Calc Pharmacy -15.3; Estimated Glomerular Filt Rate > 60; Potassium 3.9 mmol/L (3.3-5.1); Sodium 139 mmol/L (135-145); Total Protein 7.6 g/dL (6.5-8.0)
[2025-03-31 23:16] VITALS: BP 161/100; PULSE 96; RESP 20; TEMP 36.9; O2SAT 97
[2025-03-31 23:32] VITALS: BP 161/100; PULSE 96; RESP 20; TEMP 36.9; O2SAT 97
== END 2025-03-31 23:32 | disposition home or self-care (01) ==
PROVIDERS: Emergency Provider Emergency Medicine
DX: R53.83 Other fatigue (principal); F43.10 Post-traumatic stress disorder, unspecified; Z79.899 Other long term (current) drug therapy
CPT/HCPCS: 80053; 85025; 87502; 87635; 99283